=== PATIENT | female | born 1995 | race African-American/Black ===

== ENCOUNTER 2016-09-28 02:29 | Emergency (ER) | payer OTHER ==
[~2016-09-28] VITALS: Ht 162.6 cm; Wt 52.3 kg
[2016-09-28 02:50] LABS: APPEARANCE,URINE CLOUDY (CLEAR); GLUCOSE, URINE (UA) NEGATIVE (NEGATIVE); KETONES,URINE >=80 mg/dL (NEGATIVE); LEUKOCYTE ESTERASE ,URINE MODERATE (NEGATIVE); OCCULT BLOOD,URINE SMALL (NEGATIVE); PROTEIN,URINE POS 1+ (NEGATIVE)
[2016-09-28 03:39] LABS: SQUAMOUS EPITHELIAL CELL,UR Moderate /LPF (None Seen)
[2016-09-28] MEDS ORDERED: LIDOCAINE HCL/PF 1% 2 ML VIAL IM ONE (04:00)
[2016-09-28] MEDS ORDERED: AZITHROMYCIN 250 MG TABLET PO ONE (04:00)
[2016-09-28] MEDS ORDERED: CefTRIAXone SODIUM 1 GM/VIAL IM ONE (04:00)
[2016-09-28 04:34] VITALS: BP 147/88
[2016-09-30 19:11] LABS: GC DNA N.A. AMPLIFY Negative (Negative)
== END 2016-09-28 04:58 | disposition home or self-care (01) ==
LOC: EMS 02:31
DX: N39.0 Urinary tract infection, site not specified (principal); N34.2 Other urethritis; F17.210 Nicotine dependence, cigarettes, uncomplicated; I10 Essential (primary) hypertension; Z88.0 Allergy status to penicillin; Z88.8 Allergy status to other drugs, medicaments and biological substances
CPT/HCPCS: 81001; 84703; 87086; 87491; 87591; 96372; 99284; J0696; J3490